=== PATIENT | female | born 1975 | race Caucasian/White ===

== ENCOUNTER 2020-01-17 15:05 | Emergency (ER) | payer OTHER ==
[~2020-01-17] VITALS: Ht 162.6 cm; Wt 81.7 kg
[2020-01-17 15:57] LABS: ABSOLUTE BASOPHILS 0.1 thou/uL (0.0-0.2); ABSOLUTE EOSINOPHILS 0.1 thou/uL (0.0-0.7); ABSOLUTE LYMPHOCYTES 1.9 thou/uL (0.8-5.3); ABSOLUTE MONOCYTES 0.7 thou/uL (0.0-1.2); BASOPHILS 0.8 %; EOSINOPHILS 1.4 %; HEMATOCRIT 42.7 % (37.0-47.0); HEMOGLOBIN 14.9 gm/dL (12.0-15.0); LYMPHOCYTES 24.3 %; MCH 30.3 pg (26.0-34.0); MCV 86.8 fL (80.0-100.0); MONOCYTES 9.3 %; MPV 8.9 fl. (7.2-11.1); NUCLEATED RBCS 0 /100WBC; PLATELET COUNT* 240 thou/uL (150-400); POLYS 64.2 %; RBC 4.92 mil/uL (4.20-5.00); RDW-CV 13.1 % (10.5-14.5); WBC 7.8 thou/uL (4.0-11.0)
[2020-01-17 16:06] LABS: CALCIUM 9.7 mg/dL (8.5-10.1); CREATININE 0.7 mg/dL (0.6-1.3); POTASSIUM 3.9 mmol/L (3.5-5.1)
[2020-01-17 16:07] LABS: APTT 25.5 Seconds (25.0-31.3); PROTIME 9.9 Seconds (9.20-11.50)
[2020-01-17 16:17] LABS: ALBUMIN 3.6 g/dL (3.4-5.0); MAGNESIUM 1.7 mg/dL (1.8-2.4); TOTAL BILIRUBIN 0.4 mg/dL (<0.1-1.0); TOTAL PROTEIN 6.8 g/dL (6.4-8.2)
[2020-01-17 18:12] LABS: URINE BILIRUBIN NEGATIVE (Negative); URINE BLOOD NEGATIVE (Negative); URINE CLARITY CLEAR; URINE COLOR YELLOW; URINE GLUCOSE-RANDOM NEGATIVE (Negative); URINE KETONES NEGATIVE (Negative); URINE LEUKOCYTES-REFLEX NEGATIVE (Negative); URINE NITRITE-REFLEX NEGATIVE (Negative); URINE PROTEIN NEGATIVE (Negative); URINE UROBILINOGEN 0.2 E.U./dl (0.2-1.0)
[2020-01-17] MEDS ORDERED: LISINOPRIL-HCT1 EACH PO (18:24)
[2020-01-17 18:41] VITALS: BP 137/78
--- NOTE | 2020-01-18 10:14 | EKG ---
[place] [address] ELECTROCARDIOGRAM REPORT Name: TREVOR PAEZ Room: [facility]#: [id number] Admission: 01/17/20 Attend Phys: Discharge: 01/17/20 Date of : 73 Date of Service: 01/17/20 1612 Report #: [id number] THIS REPORT FOR: //name// [facility] ED Test Date: 2020-01-17 Test Time: 16:12:31 Pat Name: TREVOR PAEZ Department: Room: Gender: Medical Record Coder: [facility] : 1975 Requested By: Elli Sanders Order Number: [id number] MD: Umesh Escobar Measurements Intervals [place]ner Rate: 77 P: 19 FL: 129 QRS: 12 QRSD: 82 T: 30 QT: 368 QTc: 417 Interpretive Statements Sinus rhythm Abnormal R-wave progression, early transition No previous ECG available for comparison Electronically Signed On 01-18-2020 10:14:01 CDT by Umesh Escobar [email or web address] <ELECTRONICALLY SIGNED> By: Umesh Escobar MD, [facility] 01/18/20 1014 11 11 Umesh Escobar MD, [facility] /EPI
== END 2020-01-17 18:42 | disposition home or self-care (01) ==
LOC: M.ERS 15:05
PROVIDERS: Nurse Practitioner Family
DX: R07.9 Chest pain, unspecified (principal); Z20.828 Contact with and (suspected) exposure to other viral communicable diseases; R06.02 Shortness of breath; E66.9 Obesity, unspecified; I10 Essential (primary) hypertension; Z90.710 Acquired absence of both cervix and uterus; Z88.1 Allergy status to other antibiotic agents

== ENCOUNTER 2020-06-21 00:54 | Observation (INO) | payer OTHER ==
[~2020-06-21] VITALS: Ht 162.6 cm; Wt 88.1 kg
[~2020-06-21 00:54] MED LIST: LISINOPRIL-HCT1 EACH PO
[2020-06-21 00:59] VITALS: BP 148/89
[2020-06-21] MEDS ORDERED: PROTONIX40 M4 PO (01:09)
[2020-06-21 01:27] LABS: URINE BILIRUBIN NEGATIVE (Negative); URINE BLOOD NEGATIVE (Negative); URINE CLARITY CLEAR; URINE COLOR YELLOW; URINE GLUCOSE-RANDOM NEGATIVE (Negative); URINE KETONES NEGATIVE (Negative); URINE LEUKOCYTES-REFLEX NEGATIVE (Negative); URINE NITRITE-REFLEX NEGATIVE (Negative); URINE PROTEIN NEGATIVE (Negative); URINE UROBILINOGEN 0.2 E.U./dl (0.2-1.0)
[2020-06-21 01:55] LABS: ABSOLUTE BASOPHILS 0.1 thou/uL (0.0-0.2); ABSOLUTE EOSINOPHILS 0.1 thou/uL (0.0-0.7); ABSOLUTE LYMPHOCYTES 2.3 thou/uL (0.8-5.3); ABSOLUTE NEUTROPHILS 7.9 thou/uL (1.6-8.1); BASOPHILS 0.5 %; EOSINOPHILS 1.2 %; HEMOGLOBIN 14.2 gm/dL (12.0-15.0); MCH 29.5 pg (26.0-34.0); MCHC 33.8 g/dL (28.0-37.0); MCV 87.2 fL (80.0-100.0); NUCLEATED RBCS 0 /100WBC; PLATELET COUNT* 287 thou/uL (150-400); POLYS 69.3 %; RBC 4.82 mil/uL (4.20-5.00); RDW-CV 13.2 % (10.5-14.5); WBC 11.3 thou/uL (4.0-11.0)
[2020-06-21 01:58] LABS: CALCIUM 9.2 mg/dL (8.5-10.1); CREATININE 0.8 mg/dL (0.6-1.3); POTASSIUM 3.6 mmol/L (3.5-5.1)
[2020-06-21 02:02] LABS: ALBUMIN 3.4 g/dL (3.4-5.0); TOTAL BILIRUBIN 0.3 mg/dL (<0.1-1.0); TOTAL PROTEIN 6.6 g/dL (6.4-8.2)
[2020-06-21 04:36] VITALS: BP 115/70
[2020-06-21 05:00] VITALS: BP 102/63
--- NOTE | 2020-06-21 06:55 | NUR ---
Admit this am at approximately 0500. She has been having abdominal pain and nausea for several months but it has increased today. Alert and oriented x 4. Heartrate regular rythym, roomair sat 100%. She is to have nothing by mouth at this time. I will call surgery consult this am.
--- NOTE | 2020-06-21 07:09 | NUR ---
Consult called to answering service. Dr Aguila Ramirez trade economist.
[2020-06-21 08:00] VITALS: BP 101/61
--- NOTE | 2020-06-21 13:45 | NUR ---
SPOKE WITH DR.COREY LALA. SHE SAID WOULD AGREE TO BE ADMITTING [facility] [place]. PTS INSURANCE IS OUT OF NETWORK HERE. IS IN NETWORK AT [place]. SPOKE WITH CHENTE/[facility] ACCESS [phone]. GAVE HER INFORMATION. FAXED FACE SHEET AND NEG.COVID RESULTS TO [phone]. TOLD HER WOULD BE ACCEPTING. SHE SAID SHE WOULD GET BACK TO . CHART COPIED TO GO WITH PT. FAXED AMBULANCE NECESSITY FORM TO [facility]. INFORMED PT.OF PROCESS.
[2020-06-21 15:49] VITALS: BP 118/69
--- NOTE | 2020-06-21 16:30 | NUR ---
PER ANYI/NOEL POLLOCKFER, NO BEDS OPEN YET AT [facility].HOPE TO HAVE SOME LATER THIS [place]. HERE AND EXPLAINED TO HIM. TRANSFER TEAM WILL CALL [facility] WHEN BED BECOMES AVAILABLE.
--- NOTE | 2020-06-21 18:42 | NUR ---
PT REMAINS ALERT AND ORIENTED. TOLERATING CLEAR LIQUIDS THIS EVENING. STILL WAITING ON TRANSFER TO [place] FOR INSURANCE. PT HAS RIGHT FOREARM IV WITH LEVAQUIN INFUSING. PAIN/NAUSEA MANAGED WITH PRN MEDS. NO CONCERNS AT THIS TIME.
[2020-06-21 20:00] VITALS: BP 109/70
--- NOTE | 2020-06-22 02:19 | NUR ---
Message from Norma at [facility]. She called at [phone] and said that she will be transferred tomorrow to their tele unit room 102. Transfer papers are ready.
[2020-06-22 04:42] LABS: ABSOLUTE EOSINOPHILS 0.1 thou/uL (0.0-0.7); ABSOLUTE LYMPHOCYTES 2.4 thou/uL (0.8-5.3); ABSOLUTE MONOCYTES 0.6 thou/uL (0.0-1.2); ABSOLUTE NEUTROPHILS 3.3 thou/uL (1.6-8.1); BASOPHILS 0.7 %; EOSINOPHILS 1.8 %; HEMATOCRIT 38.8 % (37.0-47.0); LYMPHOCYTES 36.9 %; MCH 29.7 pg (26.0-34.0); MCHC 33.7 g/dL (28.0-37.0); MCV 88.1 fL (80.0-100.0); MONOCYTES 9.1 %; MPV 9.2 fl. (7.2-11.1); NUCLEATED RBCS 0 /100WBC; PLATELET COUNT* 234 thou/uL (150-400); POLYS 51.5 %; RDW-CV 13.1 % (10.5-14.5); WBC 6.5 thou/uL (4.0-11.0)
[2020-06-22 04:55] LABS: ALBUMIN 2.7 g/dL (3.4-5.0); CALCIUM 9.7 mg/dL (8.5-10.1); CREATININE 0.7 mg/dL (0.6-1.3); TOTAL BILIRUBIN 0.3 mg/dL (<0.1-1.0); TOTAL PROTEIN 5.3 g/dL (6.4-8.2)
[2020-06-22 06:00] VITALS: BP 105/68
--- NOTE | 2020-06-22 06:36 | NUR ---
Alert and oriented x 4. She is up independently in the room. Vitals are stable. She had pain and nausea meds at [facility]. She has had nothing by mouth since midnight. We are expecting her to be transported to [place].
[2020-06-22 07:40] VITALS: BP 129/67
--- NOTE | 2020-06-22 09:30 | NUR ---
SPOKE WITH [facility] ACCESS TEAM. HE SAID THEY ARE CURRENTLY LOOKING FOR BED AVAILABILITY AT [facility]. SPOKE WITH . SHE SAID [facility] IS HOLDING A SPOT FOR SURGERY FOR PT.BUT CANT ACTUALLY PUT HER ON THE SCHEDULE UNTIL SHE IS INPT. [facility] ACCESS CALLED CM BACK AND SAID PT.TO BE ADMITTED DIRECTLY TO [facility]. THEY WOULD LIKE HER THERE BY 1200. SURGERY FOR 1530. DR.ADAM PATEL TO BE ADMITTING. REPORT NUMBER FOR RN TO CALL IS [phone]. CHART COPIED TO GO WITH PT. AMBULANCE ARRANGED WITH [facility] FOR 1100. CORINNE BANEGAS TOLD OF ALL OF THE ABOVE. PT.INFORMED OF TRANSFER TIME.
--- NOTE | 2020-06-22 12:06 | NUR ---
CALLED TO CHECK ON PT. AMBULANCE HAS NOT ARRIVED. CALLED [facility]RE [phone]. DISPATCH SAID THEY ARE ON THEIR WAY. WILL LET KNOW WHEN SHE LEAVES THE FLOOR.
[2020-06-22 12:20] VITALS: BP 131/68
--- NOTE | 2020-06-22 12:25 | NUR ---
PT REMAINS ALERT AND ORIENTED. PT TAKEN VIA EMS TO [facility] FOR SURGERY. REPORT GIVEN TO EMS. PACKET GIVEN TO EMS TO TAKE TO [facility].
== END 2020-06-22 12:30 | disposition designated cancer center or children's hospital (05) ==
LOC: M.ERS 00:54 → M.ORTHSURG 03:15 → M.TBA-ER 03:15 → M.ORTHSURG 04:35
PROVIDERS: Internal Medicine; Personal Emergency Response Attendant; ADMIT Internal Medicine; ATTEND Internal Medicine
DX: K80.00 Calculus of gallbladder with acute cholecystitis without obstruction (principal); K57.30 Diverticulosis of large intestine without perforation or abscess without bleeding; Z20.822 Contact with and (suspected) exposure to COVID-19; D72.829 Elevated white blood cell count, unspecified; R73.9 Hyperglycemia, unspecified; E66.9 Obesity, unspecified; I10 Essential (primary) hypertension; Z88.1 Allergy status to other antibiotic agents; Z90.710 Acquired absence of both cervix and uterus; Z68.33 Body mass index [BMI] 33.0-33.9, adult